=== PATIENT | female | born 1995 | race Hispanic/Latino ===

== ENCOUNTER 2017-09-15 12:32 | Outpatient (CLI) | payer OTHER | END 2017-09-15 12:33 | disposition home or self-care (01) | LOC: BICULT 12:32 | PROVIDERS: ATTEND Nurse Practitioner Family | DX: N63.0 Unspecified lump in unspecified breast (principal); N63.10 Unspecified lump in the right breast, unspecified quadrant ==

== ENCOUNTER 2018-02-19 12:34 | Inpatient (IN) | payer SELFPAY ==
[2018-02-19 13:17] LABS: #Lymphocytes 0.8 thou/uL (1.20-3.40); #Monocytes 0.6 thou/uL (0.11-0.59); #Neutrophils 16.4 thou/uL (1.40-6.50); %Basophils 0.2 % (0.0-1.0); %Eosinophils 0.1 % (0.0-10.0); %Lymphocytes 4.3 % (21.0-51.0); %Monocytes 3.3 % (0.0-10.0); %Neutrophils 92.1 % (42.0-75.0); Hemoglobin 14.4 g/dL (12.0-16.0); Mean Corpuscular Hemoglobin 30.7 pg (27.0-31.0); Mean Corpuscular Volume 90.3 fL (78.0-98.0); Mean Platelet Volume 6.7 fL (7.4-10.4); Platelet Count 239 thou/uL (130-400); RBC Distribution Width 11.3 % (11.5-14.5); White Blood Cell (WBC) Count 17.8 thou/uL (4.8-10.8)
--- NOTE | 2018-02-19 15:03 | ULT ---
PELVIC ULTRASOUND: Date: 02/19/18 HISTORY: Vaginal bleeding. Positive HCG. FINDINGS: Multiple longitudinal and transverse images of the pelvis obtained using a multihertz curvilinear tra nsabdominal, as well as multihertz endovaginal transducers. Real-time, color flow, and spectral wavef orm Doppler analysis demonstrates the uterus to measure 9.0 x 4.8 x 6.7 cm. No evidence of uterine ma ss seen. Endometrium has double wall thickness of 1.6 cm. Both ovaries visualized, with the right ovary measuring 2.7 x 1.6 x 2.1 cm and the left ovary measuri ng 1.8 x 1.8 x 1.4 cm. There is a lesion adjacent to the left ovary with blood flow and a hypoechoic center. This appears to have three-dimensional measurements of 2.2 x 2.2 x 2.2 cm. I cannot exclude t he possibility that this represents a left ectopic . Correlate with serum HCG levels. IMPRESSION: 1. No evidence of a viable intrauterine . 2. Possible left adnexal lesion concerning for ectopic . POS: AMBER
--- NOTE | 2018-02-19 16:30 | HP ---
DATE OF SERVICE: 02/19/2018 TIME OF EVALUATION: 1530 until 1555 hours. LOCATION: ER bed #26. REASON FOR EVALUATION: OB vaginal bleeding of unclear etiology. HISTORY OF PRESENT ILLNESS: In brief, this is a 23-year-old very pleasant female with no real last menstrual period, but suspect she is about 6 weeks. She was seen at the [facility] ([facility]) earlier today for vaginal bleeding and was found to have a positive yariel t, so she was sent to the ER for evaluation. In the ER, it was found that she had a beta hCG of 28,3 14 with an ultrasound that did not show an intrauterine and a 2 cm possible, but unclear, l eft adnexal mass. I evaluated the patient at bedside at 1530. In brief, the patient states that she has had 3 days of vaginal bleeding with passage of clots. She has not had fever, cough or other localized symptoms. She went into the clinic today, thinking she w as having a heavy period. There is no bleeding anymore at this time. She had coitarche at age 21 an d has had 1 partner. She has never been diagnosed with any sexually transmitted infections. REVIEW OF SYSTEMS: Complete review of systems was performed and is otherwise negative unless specifi ed in the HPI. PAST MEDICAL HISTORY: Negative. PAST SURGICAL HISTORY: Negative. PAST OB HISTORY: She is a . PHYSICAL EXAMINATION: GENERAL: Her pulse was in the 60s. Blood pressure is 117/60 and her temperature is 98. Clinically, she is in no acute distress. RESPIRATIONS: Soft and nonlabored. ABDOMEN: Soft with no rebound or tenderness. There is no guarding or rigidity. PERINEAL INSPECTION: There is no evidence of vaginal bleeding any more. Based on the ER initial exa mination, her cervical os was about 1 cm dilated on bimanual but was not having any active bleeding. LABORATORY DATA: CBC showed a white blood cell count of 17 with a hematocrit value of 42 and platele ts of around 230. Beta hCG was 28,314 as previously dictated. Her blood type is Rh positive. ASSESSMENT: This is a patient, , with no risk factors for ectopic , who is clinically very stable and no evidence of hemodynamic compromise. Based on the history of 3 days of bleeding, t he most likely etiology, as she is low risk for ectopic, miscarriage in process/completed . To be conservative, I have discussed with the patient in-house observation and repeat beta hCG in abo ut 12 hours. PLAN: 1. In-house observation with repeat beta hCG. As the first CBC was hemoconcentrated, I have asked f or a repeat CBC prior to IV hydration. 2. We will begin IV hydration with LR at 125 mL per hour. 3. I will repeat a beta hCG 12 hours from the first, which will be roughly about 2:00 a.m. 4. I do not suspect ectopic at this time, but the working diagnosis is complete . I have consented her for possible laparoscopic surgery if the beta hCG indeed rises.
[2018-02-19 16:31] LABS: Pathc Cast-AUWi Flag 0.43 (0-2.49)
[2018-02-19 16:32] LABS: Yeast-AUWi Flag 185.2 (0-25.0)
[2018-02-19 16:33] LABS: Bilirubin Unable to Interpret (Negative); Blood, Urine Unable to Interpret (Negative); Clarity Hazy (Clear); Glucose, Urine (Dipstick) Unable to Interpret mg/dL (Negative); Leukocyte Unable to Interpret (Negative); Nitrite Unable to Interpret (Negative); Protein, Urine (Dipstick) 100 mg/dL (Neg-Trace); Specific Gravity, Urine 1.003 (1.002-1.036); Urobilinogen UNABLE TO INTERPRET mg/dL (0.2-1.0); pH, Urine 6.5 (5.0-9.0)
[2018-02-19 16:36] LABS: RBC/HPF GREATER THAN 50-TNTC HPF (0-3)
[2018-02-19 16:37] LABS: Bacteria/HPF 1+ HPF (None Seen); Hyaline Casts/LPF NONE SEEN LPF (0-3 Hyaline); Squamous Epithelial 0-3 HPF (0-3)
[2018-02-19 16:40] LABS: #Lymphocytes 1.4 thou/uL (1.20-3.40); #Monocytes 0.5 thou/uL (0.11-0.59); #Neutrophils 13.2 thou/uL (1.40-6.50); %Basophils 0.2 % (0.0-1.0); %Eosinophils 0.1 % (0.0-10.0); %Monocytes 3.4 % (0.0-10.0); %Neutrophils 87.3 % (42.0-75.0); Hemoglobin 13.3 g/dL (12.0-16.0); Mean Corpuscular Hemoglobin 30.5 pg (27.0-31.0); Mean Corpuscular Volume 89.7 fL (78.0-98.0); Platelet Count 226 thou/uL (130-400); RBC Distribution Width 11.2 % (11.5-14.5); Red Blood Cell (RBC) Count 4.34 mill/uL (4.20-5.40); White Blood Cell (WBC) Count 15.1 thou/uL (4.8-10.8)
[2018-02-19] MEDS: Lactated Ringer's 1,000 ML IV SCH (18:23)
[2018-02-20] MEDS ORDERED: Sodium Chloride 0.9% 10 ML ONE (01:52)
[2018-02-20] MEDS: Lactated Ringer's 1,000 ML IV SCH (03:04)
[2018-02-20 03:24] VITALS: BMI 20.3
[2018-02-20 04:57] VITALS: BP 113/59; TEMP 98.3
--- NOTE | 2018-02-20 07:01 | DIS ---
DATE OF ADMISSION: 02/19/2018 DATE OF DISCHARGE: 02/20/2018 PRINCIPAL DIAGNOSIS: Completed miscarriage. PRINCIPAL PROCEDURE: Ultrasound evaluation. HOSPITAL COURSE: In brief, this is a 23-year-old G1, P0, who was admitted on 02/19/2018 with a histo ry of 3 days of vaginal bleeding and an ultrasound which showed an empty uterus despite a beta hCG of 28,314. The ultrasound also was concerning for a left adnexal structure of unclear etiology. Her b lood type is Rh positive. Although the patient was completely clinically stable, and physical exam w as benign, with no further vaginal bleeding, I elected to keep the patient overnight for repeat beta hCG 12 hours from the first. I suspected this was a miscarriage rather than an ectopic . T he repeat beta hCG was cut in half to 13,169, which is compatible with a miscarriage based on the pat ient's history. I do not feel D&C is required as there is no further bleeding and the ultrasound amarilis wed an empty uterus. I have discussed this with the patient and she will need follow up in 1 week fo r repeat testing to ensure that the hormone is going down. There is no need for RhoGAM as she is Rh positive. Her last hematocrit value was 39. Again the working diagnosis is completed miscarriage wi thout evidence of ectopic gestation clinically.
[2018-02-22 01:15] LABS: Chlamydia by PCR DETECTED (NotDetected); GC by PCR Not Detected (NotDetected)
== END 2018-02-20 09:37 | disposition home or self-care (01) | DRG 779 ==
LOC: ERS 12:34 → 3SW 16:10
PROVIDERS: ADMIT Obstetrics & Gynecology; ATTEND Obstetrics & Gynecology
DX: O03.9 Complete or unspecified spontaneous abortion without complication (principal)
CPT/HCPCS: 36415; 76856; 81003; 81015; 84702; 85025; 86900; 86901; 87086; 87480; 87491; 87510; 87591; 87660; 96360; A4216

== ENCOUNTER 2020-05-09 19:12 | Emergency (ER) | payer MEDICAID, OTHER ==
[2020-05-09] MEDS ORDERED: Ketorolac Tromethamine 30 MG/ML VIAL ONE (19:54)
[2020-05-09] MEDS ORDERED: Morphine 4 MG/ML VIAL ONE (19:54)
[2020-05-09 20:01] LABS: #Basophils 0.1 thou/uL (0.0-0.2); #Lymphocytes 1.1 thou/uL (1.20-3.40); #Monocytes 0.8 thou/uL (0.11-0.59); #Neutrophils 11.9 thou/uL (1.40-6.50); %Basophils 0.6 % (0.0-1.0); %Eosinophils 0.3 % (0.0-10.0); %Monocytes 5.5 % (0.0-10.0); %Neutrophils 85.7 % (42.0-75.0); Mean Corpuscular HGB CONC 36.3 g/dL (32.0-36.0); Mean Corpuscular Hemoglobin 32.2 pg (27.0-31.0); Mean Corpuscular Volume 88.5 fL (78.0-98.0); Mean Platelet Volume 7.3 fL (7.4-10.4); Platelet Count 232 thou/uL (130-400); RBC Distribution Width 11.5 % (11.5-14.5); Red Blood Cell (RBC) Count 4.65 mill/uL (4.20-5.40); White Blood Cell (WBC) Count 13.9 thou/uL (4.8-10.8)
[2020-05-09 20:20] LABS: ALT (SGPT) 9 U/L (8-55); AST (SGOT) 19 U/L (5-34); Alkaline Phosphatase 54 U/L (40-110); Anion Gap 14 mmol/L (10-20); BUN (Urea Nitrogen) 11 mg/dL (7.0-18.7); Bilirubin, Total 0.4 mg/dL (0.2-1.2); Calc. Creatinine Clearance 0 mL/min (70-130); Carbon Dioxide 19 mmol/L (22-29); Chloride 103 mmol/L (98-107); Estimated GFR-MDRD Greater than 90; Globulin 3.1 g/dL (2.4-3.5); Glucose 99 mg/dL (70-105); Potassium 3.8 mmol/L (3.5-5.1); Protein, Total 7.1 g/dL (6.0-8.3); Sodium 132 mmol/L (136-145)
[2020-05-09 20:35] LABS: Clarity Turbid (Clear); Leukocyte Unable to Interpret Leu/uL (Negative); Nitrite Unable to Interpret (Negative); Protein, Urine (Dipstick) Unable to Interpret mg/dL (Neg-Trace); Specific Gravity, Urine 1.029 (1.002-1.036); pH, Urine 5.5 (5.0-9.0)
[2020-05-09 20:39] LABS: Bilirubin Unable to Interpret (Negative); Blood, Urine Unable to Interpret (Negative); Glucose, Urine (Dipstick) Unable to Interpret mg/dL (Negative); Ketone, Urine Unable to Interpret mg/dL (Negative); Urobilinogen UNABLE TO INTERPRET mg/dL (Less than 2)
[2020-05-09 20:40] LABS: RBC/HPF Greater than 50 HPF (0-3)
[2020-05-09 20:42] LABS: Bacteria/HPF Rare-Few HPF (None Seen); Squamous Epithelial 0-3 HPF (0-3)
[2020-05-09 20:43] LABS: WBC/HPF 0-3 HPF (0-3)
--- NOTE | 2020-05-09 20:45 | ULT ---
Exam: Pelvic ultrasound HISTORY: Pelvic pain and heavy vaginal bleeding. Recent administration of Cytotec to induce secondar y to failed . COMPARISON: None TECHNIQUE: Multiple grayscale and color Doppler images were obtained in a transabdominal pelvic ultra sound. Spectral analysis of the Doppler waveforms of the ovaries were performed. FINDINGS: CERVIX: Unremarkable UTERUS: Normal in size without focal abnormality. ENDOMETRIAL STRIPE: Endometrial stripe is thickened measuring 1.9 cm with slight heterogeneity presen t. Given patient's history, this could be related to either small amount of hemorrhage or retained products of conception within the endometrial canal. There is no fluid collection seen to suggest an intrauterine gestation. No free fluid is present. RIGHT OVARY: Normal flow, without focal mass. LEFT OVARY: Normal flow, without focal mass. IMPRESSION: Thickened heterogeneous endometrium. Findings could be related to hemorrhage within the endometrial c anal and/or retained products of conception.
== END 2020-05-09 21:32 | disposition home or self-care (01) ==
LOC: ERS 19:12
DX: O03.4 Incomplete spontaneous abortion without complication (principal); Z3A.01 Less than 8 weeks gestation of pregnancy
CPT/HCPCS: 36415; 76856; 80053; 81003; 81015; 84702; 85025; 86900; 86901; 88305; 93976; 96372; J1885; J2270